=== PATIENT | female | born 1990 | race Hispanic/Latino ===

== ENCOUNTER 2018-12-19 05:33 | Inpatient (IN) | payer OTHER, SELFPAY ==
[2018-12-19] MEDS ORDERED: Docusate 100 MG CAP PO PRN (06:05)
[2018-12-19] MEDS ORDERED: Promethazine HCl 25 MG/ML VIAL IM PRN ×2 (06:05→08:09)
[2018-12-19] MEDS ORDERED: Ondansetron PF 4 MG/2 ML Vial IVP PRN ×2 (06:05→08:09)
--- NOTE | 2018-12-19 06:11 | PDOC.FPROB ---
FMR OB H&P: Medications - Current Home Medications: Medication Instructions Recorded Confirmed Type 21/Iron Fu/Folic Acid 1 tablet PO DAILY 12/19/18 12/19/18 History [ Complete Caplet] Ursodiol [Actigal] 2 cap PO TID-WM 12/19/18 12/19/18 History Allergies/Adverse Reactions: Allergies Allergy/AdvReac Type Severity Reaction Status Date / Time Penicillins Allergy Intermediate Hives Verified 12/19/18 06:06 FMR OB H&P: A/P Discussion: Date/Time: 12/19/18 0611 This H&P was discussed with [] and [] who agree with the above documentation and plan.
[2018-12-19] MEDS ORDERED: Gentamicin 80 MG/2 ML VIAL IVPB SCH (06:15)
[2018-12-19] MEDS ORDERED: Bicitra 30 ML UDCUP PO SCH (06:15)
[2018-12-19] MEDS ORDERED: Lactated Ringer's 1,000 ML IV SCH (06:15)
[2018-12-19 06:21] VITALS: BMI 32.3
[2018-12-19] MEDS ORDERED: Gentamicin Sulfate 120 MG in Premix Bag 1 BAG IVPB SCH (06:30)
[2018-12-19] MEDS ORDERED: Clindamycin/D5W 900 MG in Premix Bag 1 BAG IVPB SCH (06:30)
[2018-12-19 06:38] LABS: Hemoglobin 11.8 g/dL (12.0-16.0); Mean Corpuscular HGB CONC 33.1 g/dL (32.0-36.0); Mean Corpuscular Hemoglobin 28.7 pg (27.0-31.0); Mean Corpuscular Volume 86.7 fL (78.0-98.0); Platelet Count 232 thou/uL (130-400); RBC Distribution Width 16.1 % (11.5-14.5); Red Blood Cell (RBC) Count 4.12 mill/uL (4.20-5.40); White Blood Cell (WBC) Count 4.3 thou/uL (4.8-10.8)
--- NOTE | 2018-12-19 06:42 | PDOC.FPROB ---
FMR OB H&P: Medications - Current Home Medications: Medication Instructions Recorded Confirmed Type 21/Iron Fu/Folic Acid 1 tablet PO DAILY 12/19/18 12/19/18 History [ Complete Caplet] Ursodiol [Actigal] 2 cap PO TID-WM 12/19/18 12/19/18 History Allergies/Adverse Reactions: Allergies Allergy/AdvReac Type Severity Reaction Status Date / Time Penicillins Allergy Intermediate Hives Verified 12/19/18 06:06 FMR OB H&P: Vital Signs - Maternal Vital signs: Vital Signs - First Documented Temp Pulse Resp BP 98.4 F 70 18 120/78 12/19/18 05:42 12/19/18 05:42 12/19/18 05:42 12/19/18 05:42 FMR OB H&P: Results - Labs Lab results: Laboratory Results - last 24 hr 12/19/18 06:29 WBC 4.3 L RBC 4.12 L Hgb 11.8 L Hct 35.8 L MCV 86.7 MCH 28.7 MCHC 33.1 RDW 16.1 H Plt Count 232 MPV 9.0 FMR OB H&P: A/P Discussion: Date/Time: 12/19/18 0641 This H&P was discussed with [] and [] who agree with the above documentation and plan. Signature: PCP: Tri Noriega- [facility] HPI: This is a 28 yo at 36.2 wks by LMP/20.2w sono presenting for scheduled repeat c/s. Patient developed cholestasis of in the third trimester and thus is proceeding with c/s. Patient received 2 doses of betamethasone at [facility]. She affirms movement, denies cxns, ROM, bleeding/discharge. Denies ANGELES, visual changes, SOB, or swelling. History: OB hx: LTCS x2 PMH: denies asthma, DM, HTN PSH: c/s x2 Meds: PNV All: penicillin-anaphylaxis Soc Hx: denies smoking, alcohol, drugs Fam Hx: denies downs, congenital defects, father has DM Blood type: A+ Abs screen: neg Hep b neg RPR/HIV neg Rubella immune GC/CT neg Quad: 1 hr GCT: 78 A1c: 5.2 GBS: negative Bile Acids: 22 REVIEW OF SYSTEMS: Gen: no fever, chills, or sweats Neuro: no numbness/tingling, no weakness, denies headache ENT: denies congestion Eyes: no visual changes Resp: no cough, no SOB, no wheeze Card: denies chest pain, no palpitations GI: no N/V/D, no abdominal pain : no dysuria, no hematuria Skin: no rash, no erythema Psych: denies hx anxiety/depression Vitals: T: 98.4 R: 18 BP: 120/70 P:70 Sat: 98% on RA Wt: 72kg PHYSICAL EXAMINATION: General: NAD, alert and oriented x3 HEENT: EOMI, normal sclera Neck: Supple. Full ROM. Heart/Cardiovascular System: RRR, Cap refill < 3 seconds, no rub, no murmur Lungs/Respiratory System: clear to auscultation bilaterally. No increased work of breathing. Room air. Abdomen/Gastro-Intestinal System: no abdominal tenderness, normal bowel sounds, Gravid Extremities: Warm extremities. No cyanosis or edema. 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 Noriega I agree with the History, Examination, Assessment and Plan documented above with any addition or exceptions noted below.
[2018-12-19] MEDS ORDERED: Oxytocin 10 UNITS/ML VIAL ONE ×2 (07:05→09:13)
[2018-12-19] MEDS ORDERED: Fentanyl 100 MCG/2 ML VIAL ONE (07:05)
[2018-12-19] MEDS ORDERED: ePHEDrine/0.9% NaCl/PF SYRINGE 50 mg/10 ml ONE (07:06)
[2018-12-19] MEDS ORDERED: MORPHINE 5 MG/10 ML PF VIAL ONE (07:06)
[2018-12-19] MEDS ORDERED: Phenylephrine HCL 10 MG/ML VIAL ONE (07:07)
[2018-12-19 07:18] LABS: Syphilis Antibody Nonreactive (Nonreactive); Syphilis Antibody Index 0.02 S/CO (<1.00 Non-Reactive)
[2018-12-19 07:19] LABS: HBSAg Index 0.29 S/CO (0-0.99); Hep B Surf Ag Non-Reactive S/CO (NonReactive)
[2018-12-19] MEDS ORDERED: Methylergonovine 0.2 MG/ML VIAL ONE (07:29)
[2018-12-19] MEDS ORDERED: Promethazine HCl 25 MG SUPP PR PRN (08:09)
[2018-12-19] MEDS ORDERED: Naloxone HCl 0.4 mg/ml Vial IVP PRN ×2 (08:09)
[2018-12-19] MEDS ORDERED: Naloxone HCl 0.4 mg/ml Vial IV PRN (08:09)
[2018-12-19] MEDS ORDERED: Communication Order-Pharmacy FS SCH (08:15)
[2018-12-19] MEDS ORDERED: Ketorolac Tromethamine 30 MG/ML VIAL ONE (08:34)
--- NOTE | 2018-12-19 09:33 | PDOC.OPDEL ---
OB Operative/Delivery Note - Additional Findings/Plan Compilations/Other Findings: Procedure Note Date of Procedure: 12/1218 Resident Surgeon: Dr. Sukumar Noriega, Dr. Cindy Cox Attending Surgeon: Dr. Vizcarra Procedure: Repeat low transverse caesarean section Preoperative Diagnosis: 1) Near-Term intrauterine by 20.2 wk US 2) Previous vertical skin incision 3) Cholestasis of Postoperative Diagnosis: 1) Near-Term intrauterine by 20.2 wk US 2) Previous vertical skin incision 3) Cholestasis of 4) Inferior T-extension of hysterotomy on delivery of infant Anesthesia: spinal Indications: The patient is a 28 year old G3,P2 female at 36.2 weeks gestation who presented for scheduled . Procedure in Detail: After risks, benefits, and alternatives were explained to the patient, she gave informed consent. Pre-operative antibiotics included Cindamycin, gentamicin due to penicillin allergy. The patient was taken to the operating room and spinal anesthesia was placed. She was placed in the supine position with a left tilt and prepped and draped in usual sterile fashion. A Pfannenstiel incision was made with a scalpel and carried down to the level of the fascia which was sharply nicked. The fascial cut was extended bilaterally with Jackson sissors. The inferior and superior edges of the cut fascial edges were elevated with Ady clamps and the underlying rectus muscles were sharply and bluntly dissected free. The recti were divided using hemostat and jackson scissors sharply and bluntly. The peritoneum was entered bluntly and retracted manually. Jerrell O-ring was placed. A low transverse score was made with the scalpel and the uterus was entered in the midline with the scalpel. Clear fluid was seen. The hysterotomy was extended manually. The infant was noted to be vertex and was easily delivered by fundal pressure. Mouth and nares were bulb suctioned. Cord clamped and cut and grossly normal male was handed to waiting nurse. Cord blood was obtained. Placenta was manually extracted, found to be intact with 3 vessel cord and discarded. The uterus was externalized and the endometrium was curetted with a dry lap. The uterus was found to have a 3cm inferior hysterotomy extension just to the left of the midline. The hysterotomy extension was closed with a running locking 0-Monocryl. The remainder of the hysterotomy was closed in usual fashion with a running locking 0-monocryl. 1 figure of eight stitch using 0 monocryl was placed at the left lateral hysterotomy edge. Bleeders were bovied. After this surgi-seal was placed to assist with small bleeder near the lower segment. Following this hemostasis was noted. Uterus was internalized and the hysterotomy was again noted to be hemostatic. The peritoneum was closed with 3-0 chromic in the usual running fashion. The fascia was closed with a running non-locking 0-PDS suture. The subcutaneous tissue was irrigated and there were no bleeders. The subcutaneous layer was approximated with 3 simple interrupted stitches using 3-0 plain gut. The skin was approximated with 1-0 monocryl on a tan needle and a pressure dressing was placed. All counts were correct. The patient tolerated the procedure well and was taken to the recovery room in stable condition. QBL: 890 ml Complications: None Specimens: Cord blood sent to lab for blood type Findings: Grossly normal male . Grossly normal placenta with 3 vessel cord discarded. Drains: Saenz to gravity draining clear urine Addendum - Attending - Attending Attestation Date/Time: 12/19/18 9863 I was present for and assisted in the entire uncomplicated delivery performed by Sami Noriega and Brooke.
[2018-12-19] MEDS ORDERED: Simethicone Chewable 80 MG TAB PO PRN (10:58)
[2018-12-19] MEDS ORDERED: diphenhydrAMINE 25 MG CAP PO PRN (10:58)
[2018-12-19] MEDS ORDERED: Adacel (T-DAP) 0.5 ML SYRINGE IM ONE (10:58)
[2018-12-19] MEDS: diphenhydrAMINE 50 MG/ML VIAL IVP PRN ×2 (12:05→20:03)
[2018-12-19] MEDS: Ibuprofen 800 MG TAB PO SCH (14:03)
--- NOTE | 2018-12-19 15:10 | PDOC.EVN ---
Event Note - Event Note Event Note: Patient laying in bed comfortably. Small amount of abdominal pain, controlled with medications. Vomited earlier after drinking water, resolved with zofran. Wanting to try po food. Saenz in place with clear yellow urine. Bleeding consistent with a period. Fundus firm and appropriately TTP. Vital signs stable. No concerns. Will continue to advance diet as tolerated. Continue with routine care. Addendum - Attending - Attending Attestation Date/Time: 12/19/18 3052 I personally evaluated the patient and discussed the management with Dr. Mata. Urine output has been adequate, >50 ml/hr over last 4hrs.
[2018-12-19] MEDS: Ketorolac Tromethamine 30 MG/ML VIAL IVP PRN (20:00)
[2018-12-20] MEDS: Ketorolac Tromethamine 30 MG/ML VIAL IVP PRN (02:13)
[2018-12-20] MEDS: Docusate Calcium (SURFAK) 240 MG CAP PO SCH ×3 (05:30→22:29)
[2018-12-20] MEDS: Ferrous Sulfate 325 MG TAB PO SCH ×3 (05:30→19:17)
[2018-12-20] MEDS: Ibuprofen 800 MG TAB PO SCH ×4 (05:30→22:29)
[2018-12-20 06:04] LABS: Hemoglobin 11.5 g/dL (12.0-16.0); Mean Corpuscular Hemoglobin 28.1 pg (27.0-31.0); Mean Corpuscular Volume 87.6 fL (78.0-98.0); Mean Platelet Volume 9.3 fL (7.4-10.4); Platelet Count 258 thou/uL (130-400); RBC Distribution Width 15.9 % (11.5-14.5); Red Blood Cell (RBC) Count 4.09 mill/uL (4.20-5.40); White Blood Cell (WBC) Count 6.9 thou/uL (4.8-10.8)
--- NOTE | 2018-12-20 07:24 | PDOC.PP ---
Post Progress Note Post Day #: 1 Subjective: eating drinking well, ambulating, pain well controlled with norco, less bleeding than normal menses. PO intake tolerated: yes Flatus: yes Ambulation: yes Vital Signs (12 hours) Temp Pulse Resp BP Pulse Ox 12/19/18 23:55 98.4 F 61 16 100/57 L 96 12/19/18 20:05 98.6 F 66 16 130/56 L 95 Weight Weight 72.575 kg - Physical Examination General: NAD Cardiovascular: no m/r/g, RRR Respiratory: clear to auscultation bilaterally, non-labored breathing Abdominal: + bowel sounds, appropriately TTP Extremities: negative homans (B) Skin: CS incision dry & intact, no rash Neurological: no gross focal deficits Psychiatric: A&Ox3, normal affect Result Diagrams: 12/20/18 05:39 Additional Labs: Post Labs Blood Type A POSITIVE 12/19/18 06:56 Hep Bs Antigen Non-Reactive S/CO (NonReactive) 12/19/18 06:29 (1) Status: Acute (2) delivery delivered Code(s): O82 - ENCOUNTER FOR DELIVERY WITHOUT INDICATION Status: Acute (3) Cholestasis during Code(s): O26.619 - LIVER AND BILIARY TRACT DISORD IN , UNSP TRIMESTER; K83.1 - OBSTRUCTION OF BILE DUCT Status: Acute - Assessment/Plan # PP day 1, c/s x3 - pain well controlled - hgb 11.9-> 11.5, minimal bleeding, asx - tolerating PO, ambulating - incision dry and intact # T-extension of uterus on delivery of infant - thin lower uterine segment - discussed risk of repeat , mother says she is done having children - discussed tubal ligation, vasectomy, nexplanon, IUD, mother says she will consider is leaning towards IUD for now Addendum - Attending - Attending Attestation Date/Time: 12/20/18 1620 I personally evaluated the patient and discussed the management with Dr. Noriega I agree with the History, Examination, Assessment and Plan documented above with any addition or exceptions noted below. Stable POD #1 s/p RLTCS Pt reports significant pain. Minimal flatus and hypoactive bowel sounds but abdomen is soft and non distended. No vomiting after PO intake. Encouraged ambulation. Will monitor forevolving ileus Minimal drop in Hgb postoperatively. Continue routine postoperative care and monitor pain closely.
[2018-12-20] MEDS: HYDROcodone/Acetaminophen 5/325 mg Tablet PO PRN (10:18)
[2018-12-20] MEDS: Prenatal Vitamin 1 TAB PO SCH (10:18)
[2018-12-21] MEDS: HYDROcodone/Acetaminophen 5/325 mg Tablet PO PRN ×3 (00:45→12:08)
[2018-12-21] MEDS: Ibuprofen 800 MG TAB PO SCH (06:00)
--- NOTE | 2018-12-21 07:23 | PDOC.PP ---
Post Progress Note Post Day #: 2 Subjective: Today patient states that she developed a cough last night and had pain at her incision site when she was coughing. VSS. She states that after taking the pain medication her pain was fairly well controlled. She tolerated PO without difficulty, denies vomiting, has not had a BM as of yet but has been passing gas per her report. States she does want to go home today. Developed itching overnight, benadryl helped per her report. PO intake tolerated: yes Flatus: yes Ambulation: yes Vital Signs (12 hours) Temp Pulse Resp BP Pulse Ox 12/21/18 04:00 98.7 F 67 16 90/55 L 98 12/21/18 00:00 99.8 F H 81 16 105/51 L 98 12/20/18 20:14 98.9 F 77 16 118/78 98 Weight Weight 72.575 kg - Physical Examination General: NAD Cardiovascular: no m/r/g, RRR Respiratory: clear to auscultation bilaterally, non-labored breathing Abdominal: + bowel sounds, no distention, appropriately TTP Fundus firm & at: 2cm below umbilicus Extremities: negative homans (B) Skin: CS incision dry & intact, no rash Neurological: no gross focal deficits Psychiatric: A&Ox3, normal affect Result Diagrams: 12/20/18 05:39 Additional Labs: Post Labs Blood Type A POSITIVE 12/19/18 06:56 Hep Bs Antigen Non-Reactive S/CO (NonReactive) 12/19/18 06:29 (1) Status: Acute (2) delivery delivered Code(s): O82 - ENCOUNTER FOR DELIVERY WITHOUT INDICATION Status: Acute (3) Cholestasis during Code(s): O26.619 - LIVER AND BILIARY TRACT DISORD IN , UNSP TRIMESTER; K83.1 - OBSTRUCTION OF BILE DUCT Status: Acute - Assessment/Plan # PP day 2, c/s x3 - pain well controlled - hgb 11.9-> 11.5, minimal bleeding, asx - tolerating PO, ambulating - incision dry and intact # T-extension of uterus on delivery of infant - thin lower uterine segment - discussed risk of repeat , mother says she is done having children - discussed tubal ligation, vasectomy, nexplanon, IUD, mother says she will consider is leaning towards IUD for now # Cholestasis of - repeat CMP, bile acids at 6 wks PP D/c home today with ibuprofen, iron, docusate, benadryl, norco F/u [facility] weeks at [facility] Addendum - Attending - Attending Attestation Date/Time: 12/21/18 8239 I personally evaluated the patient and discussed the management with Dr. Noriega I agree with the History, Examination, Assessment and Plan documented above with any addition or exceptions noted below. Stable POD#2 s/p RLTCS. Meeting appropriate milestones. Pain well controlled. Pt requesting early discharge today. Will allow to go if baby is also stable to go at this time.
[2018-12-21 08:09] VITALS: BP 108/68; TEMP 98
[2018-12-21] MEDS: Prenatal Vitamin 1 TAB PO SCH (08:23)
[2018-12-21] MEDS: Docusate Calcium (SURFAK) 240 MG CAP PO SCH (08:23)
[2018-12-21] MEDS: Ferrous Sulfate 325 MG TAB PO SCH (08:23)
== END 2018-12-21 12:35 | disposition home or self-care (01) | DRG 786 ==
LOC: L&D 05:33 → 3SE 12:12
PROVIDERS: ADMIT Family Medicine; ATTEND Family Medicine
PROC: 10D00Z1 Extraction of Products of Conception, Low, Open Approach (ICD-10-PCS; principal; 2018-12-19)
DX: O26.62 Liver and biliary tract disorders in childbirth (principal); K83.1 Obstruction of bile duct; O90.0 Disruption of cesarean delivery wound; O34.211 Maternal care for low transverse scar from previous cesarean delivery; Z3A.36 36 weeks gestation of pregnancy; Z37.0 Single live birth
CPT/HCPCS: 36415; 51702; 85027; 86780; 86850; 86900; 86901; 87340; J1200; J1580; J1885; J2210; J2270; J2370; J2405; J2590; J3010; J3490